=== PATIENT | female | born 1965 | race African-American/Black ===

== ENCOUNTER → 2016-07-09 | Outpatient (CLI) | payer OTHER ==
[~2016-07-09] MED LIST: ACIPHEX20 MG; CREAM FOR PSORIASIS; CYMBALTA20 MG PO; LEVOTHROID125 MCG PO; LUMIGAN; PAXIL; PAXIL PO; POTASSIUM; PROAIR HFA8.5 GM; TRAMADOL HCL-AP1 TAB PO; WATER PILL; [UNRECOGNIZED DRUG - SUPPLY]
--- NOTE | ~2016-07-09 | CT71 ---
[facility] A Service of [facility] RADIOLOGY TEXT RESULTS PATIENT: SARAN CONTRERAS LOCATION: [facility] : 69 UNIT #: [id number] AGE: [address]: DALTON GONZALES MD SEX: F ORDER DR: [id number] [facility] [address] [place], [place] [address] [id number] MR#: [id number] Acc #: [id number] NAME: SARAN CONTRERAS. : 1965 SEX: F STUDY DATE/TIME: 07/09/2016 15:29 UNIT: [facility] ROOM: STUDY DESCRIPTION: CT Head Wo Contrast Attending Physician: Dalton Gonzales M.D. Referring Physician: Dalton Gonzales M.D. Ordering Physician: Dalton Gonzales M.D. Primary Care Physician: Dalton Gonzales M.D. MEDICAL IMAGING REPORT This report is preliminary unless electronic signature is present EXAM CT scan of the head without contrast. INDICATION Headache and vertigo for 2 days, which is worsening today. Previous brain tumor in 2012. COMPARISON There is a comparison MR brain from 12/20/11. TECHNIQUE Unenhanced images were obtained through the brain. This CT exam was performed with one or more of the following radiation dose reduction techniques: automatic exposure control, adjustment of mA and/or kV according to patient size, and iterative reconstruction. FINDINGS Ventricles and subarachnoid spaces are normal. There are postoperative changes in the right temporal bone region with a metal plate attached to the skull, and there is a craniotomy site in the right posterior fossa. Mastoid air cells have been removed. IMPRESSION Postoperative changes right temporal bone and posterior fossa. No acute abnormalities. Dictated by... Ruben Alejandra M.D. THIS IS AN ELECTRONICALLY VERIFIED REPORT Ruben Alejandra M.D. at 07/10/2016 6:06 AM [facility] A Service of [facility] RADIOLOGY TEXT RESULTS PATIENT: SARAN CONTRERAS LOCATION: [facility] : 69 UNIT #: [id number] AGE: [address]: DALTON GONZALES MD SEX: F ORDER DR: AMELIA/emma TD: 07/09/2016 23:22 JOB #: [id number] MEDICAL IMAGING REPORT Page 1 of 1 COPY
== END | disposition home or self-care (01) ==
LOC: CCAT 15:11
DX: R51 Headache (principal); Z98.890 Other specified postprocedural states
CPT/HCPCS: 70450